=== PATIENT | female | born 1985 | race Hispanic/Latino ===

== ENCOUNTER 2018-06-02 07:12 | Inpatient (IN) | payer BC | END 2018-06-05 16:10 | disposition home or self-care (01) | LOC: DAHIP 07:12 → 2BH 06-03 05:30 → 2CV 15:36 → 2AH 06-04 12:55 | PROC: 02Q50ZZ Repair Atrial Septum, Open Approach (ICD-10-PCS; principal; 2018-06-02 11:15) | DX: I51.0 Cardiac septal defect, acquired (principal); Q21.1 Atrial septal defect; I35.1 Nonrheumatic aortic (valve) insufficiency ==